=== PATIENT | female | born 1970 | race Caucasian/White ===

== ENCOUNTER 2019-05-10 18:17 | Emergency (ER) | payer BC ==
[2019-05-10 18:46] VITALS: TEMP 99
[2019-05-10] MEDS: IPRATROPIUM/ALBUTEROL 3 ML VIAL NEB ONE (19:03)
[2019-05-10] MEDS: predniSONE 20 MG TAB PO ONE (19:07)
--- NOTE | 2019-05-10 19:48 | ED.PDOC ---
History of Present Illness - General Chief Complaint: General Stated Complaint: Chest tightness and congestion Time Seen by Provider: 05/10/19 18:50 Source: patient Exam Limitations: no limitations - History of Present Illness Initial Comments: the patient is a 49-year-old female presenting to emergency room secondary to cough, shortness of breath wheezing runny nose and a mild sore throat. No definite fevers. She does have a distant history of asthma. She does have wheezes that can be heard across the room. No abdominal pain. No vomiting. Timing/Duration: 24 hours Severity: moderate Improving Factors: nothing Worsening Factors: nothing Associated Symptoms: cough, shortness of breath Allergies/Adverse Reactions: Allergies Aspirin Allergy (Verified 05/10/19 19:05) Home Medications: Ambulatory Orders Albuterol Inhaler [Ventolin Hfa Inhaler] 2 puff INH Q4H PRN #1 inh 05/10/19 predniSONE [Prednisone] 20 mg PO DAILY #3 tab 05/10/19 Review of Systems - Review of Systems Constitutional: States: malaise EENTM: States: nose congestion, throat pain Respiratory: States: cough, short of breath, wheezing Cardiology: States: no symptoms reported Gastrointestinal/Abdominal: States: no symptoms reported Genitourinary: States: no symptoms reported Musculoskeletal: States: no symptoms reported Skin: States: no symptoms reported Neurological: States: no symptoms reported Endocrine: States: no symptoms reported All other Systems: No Change from Baseline Past Medical History (General) - Patient Medical History Hx Stroke: No Hx Asthma: Yes Hx Congestive Heart Failure: No Hx Diabetes: No - Vaccination History Hx Tetanus, Diphtheria Vaccination: Yes Hx Influenza Vaccination: Yes - 2018 Hx Pneumococcal Vaccination: Yes - Social History Hx Tobacco Use: Yes Hx Alcohol Use: No Family Medical History - Family History Mother Living Status: Still Living Hx Family;Other: Emphysema Physical Exam - Physical Exam General Appearance: Alert, Comfortable, No apparent distress Eye Exam: bilateral normal Ears, Nose, Throat: hearing grossly normal, nasal congestion, pharyngeal erythema Neck: full range of motion, supple Respiratory: accessory muscle use - mild, rhonchi, wheezing Cardiovascular/Chest: normal peripheral pulses, regular rate, rhythm, no edema Peripheral Pulses: radial,right: 2+, radial,left: 2+, dorsalis pedis,right: 2+, dorsalis pedis,left: 2+ Gastrointestinal/Abdominal: non tender, soft Rectal Exam: deferred Back Exam: no CVA tenderness, no vertebral tenderness Extremity: normal range of motion, non-tender, normal inspection, no pedal edema, normal capillary refill Neurologic: deposit clerk II-XII nml as tested, alert, normal mood/affect, oriented x 3 Skin Exam: normal color Comments: Vital Signs - 24 hr 05/10/19 05/10/19 18:22 19:03 Temperature 99.0 F Pulse Rate 89 Pulse Rate [ 98 H Left Radial] Respiratory 20 17 Rate Blood Pressure 162/96 [Left Arm] O2 Sat by Pulse 98 957 H Oximetry Progress - Progress Progress: 05/10/19 19:47 the patient is a 49-year-old female presenting to emergency room secondary to what appears to be a viral bronchitis and upper respiratory tract infection. The patient has been placed on low-dose prednisone for 3 days for the reactive airway component. She will also be written for a Ventolin inhaler for as needed use. Motrin can be used for aches and pains. She needs to keep herself well hydrated. Keep routine follow up with primary care doctor. ER warnings were given for any worsening. 05/10/19 19:49 katia verma [id number] - Results/Orders Results/Orders: hest x-ray shows no evidence of any focal infiltrate. Departure - Departure Clinical Impression: Viral bronchitis, Viral upper respiratory infection Asthma exacerbation Qualifiers: Asthma severity: moderate Asthma persistence: unspecified Qualified Code(s): J45.901 - Unspecified asthma with (acute) exacerbation Disposition: Discharge to Home or Self Care Condition: Fair Departure Forms: ED Discharge - Pt. Copy, Patient Portal Self Enrollment Instructions: Asthma, Adult (DC), Viral Upper Respiratory Infection, Adult (DC) Diet: regular diet Activity: increase activity as tolerated Referrals: Mukul Grimes III, MD [Primary Care Provider] - 1-2 Weeks Prescriptions: Albuterol Inhaler [Ventolin Hfa Inhaler] 2 puff INH Q4H PRN #1 inh PRN Reason: Shortness Of Breath predniSONE [Prednisone] 20 mg PO DAILY #3 tab Home Medications: Ambulatory Orders Albuterol Inhaler [Ventolin Hfa Inhaler] 2 puff INH Q4H PRN #1 inh 05/10/19 predniSONE [Prednisone] 20 mg PO DAILY #3 tab 05/10/19 Additional Instructions: the patient is a 49-year-old female presenting to emergency room secondary to what appears to be a viral bronchitis and upper respiratory tract infection. The patient has been placed on low-dose prednisone for 3 days for the reactive airway component. She will also be written for a Ventolin inhaler for as needed use. Motrin can be used for aches and pains. She needs to keep herself well hydrated. Keep routine follow up with primary care doctor. ER warnings were given for any worsening.
--- NOTE | 2019-05-10 19:51 | RAD ---
EXAM: XR Chest, 2 Views CLINICAL HISTORY: cough, wheeze sob TECHNIQUE: Frontal and lateral views of the chest. COMPARISON: No relevant prior studies available. FINDINGS: Limitations: None. Lungs: Unremarkable. No consolidation. Pleural space: Unremarkable. No pneumothorax. Heart: Unremarkable. No cardiomegaly. Mediastinum: Unremarkable. Bones/joints: Unremarkable. IMPRESSION: No acute findings. Electronically signed by: Diana Roblero MD 05/10/2019 7:50 PM CDT
[2019-05-10 20:02] VITALS: BP 130/93; O2SAT 97
== END 2019-05-10 20:00 | disposition home or self-care (01) ==
LOC: ER 18:17
DX: J45.901 Unspecified asthma with (acute) exacerbation (principal); J06.9 Acute upper respiratory infection, unspecified; J20.8 Acute bronchitis due to other specified organisms; Z87.891 Personal history of nicotine dependence; Z79.899 Other long term (current) drug therapy; Z88.6 Allergy status to analgesic agent
CPT/HCPCS: 71046; 94640; J7512; J7620